=== PATIENT | male | born 1985 | race Two or more races ===

== ENCOUNTER 2018-10-21 16:40 | Emergency (ER) | payer OTHER ==
[~2018-10-21] VITALS: Ht 167.6 cm; Wt 65.8 kg
--- NOTE | 2018-10-21 16:40 | NUR ---
ED Nurse Note: pt came to ED by ambulance due to ETOH. pt vss, awaiting md orders.
[2018-10-21 17:04] VITALS: BP 114/98
--- NOTE | 2018-10-21 17:20 | NUR ---
ED Nurse Note: pt was slightly agitated around 1655. room light was turned off to allow pt to calm down. pt fell asleep. awaiting futher orders from .
[2018-10-21] MEDS ORDERED: LORazepam Inj 2mg/ml 1ml IM ONE (17:30)
--- NOTE | 2018-10-21 19:01 | NUR ---
HAND-OFF: Report given to MIKE Jo. Pt at the bedside sleeping.
[2018-10-21 19:10] VITALS: BP 126/88
--- NOTE | 2018-10-21 19:10 | NUR ---
ED Nurse Note: Received Pt and report from day shift. Pt just awaked and urine on floor when visited. Infrom EVS come and clean the floor, reposition Pt.
--- NOTE | 2018-10-21 19:20 | Emergency Room Report ---
History of Present Illness General Chief Complaint: Alcohol Intoxication Source: Patient Present Illness HPI 33-year-old male presents ED for evaluation. Reported alcohol intoxication. Picked up by EMS from street. Upon arrival patient missed alcohol use. Denies any drug use. Walking with unsteady gait. Has a knee immobilizer on. Is unable to clarify what happened to his leg. Denies any pain. Denies SI or HI. No other aggravating relieving factors. Denies any other associated symptoms Allergies: Coded Allergies: No Known Allergies (Unverified , 10/21/18) Patient History Past Medical History: none Past Surgical History: none Pertinent Family History: none Social History: Reports: alcohol use; Denies: smoking, drug use Immunizations: UTD Reviewed Nursing Documentation: PMH: Agreed; PSxH: Agreed Nursing Documentation-PMH Past Medical History: No History, Except For Review of Systems All Other Systems: negative except mentioned in HPI Physical Exam Vital Signs Date Time Temp Pulse Resp B/P (MAP) Pulse Ox O2 Delivery O2 Flow Rate FiO2 10/21/18 16:35 99.0 109 14 135/69 98 Room Air Sp02 EP Interpretation: reviewed, normal General Appearance: no apparent distress, GCS 15, non-toxic, other - intoxicated Head: normocephalic Eyes: bilateral eye normal inspection, bilateral eye PERRL ENT: normal ENT inspection Neck: normal inspection Respiratory: normal inspection Cardiovascular #1: normal inspection Gastrointestinal: normal inspection Rectal: deferred Genitourinary: no CVA tenderness Neurologic: other - intoxicated Psychiatric: other - intoxicated Skin: normal inspection Lymphatic: normal inspection Medical Decision Making Diagnostic Impression: Primary Impression: Acute alcoholic intoxication Qualified Codes: F10.929 - Alcohol use, unspecified with intoxication, unspecified ER Course Hospital Course 33-year-old male presents to ED status post EtOH intoxication. Clinical course Patient placed on stretcher. Patient initially walking with unsteady gait with risk for fall. Patient given Ativan. Allowed to sleep During ED course vital stable. Patient is now awake alert oriented 3. My assessment shows no evidence of SI/HI requiring psychiatric evaluation. Patient is asking to be discharged. Wi'll take a bus home Diagnosis - ETOH intoxication stable and discharged to home. Followup with PMD. Return to ED if symptoms recur or worsen Last Vital Signs Date Time Temp Pulse Resp B/P (MAP) Pulse Ox O2 Delivery O2 Flow Rate FiO2 10/21/18 17:04 108 21 114/98 99 Room Air 10/21/18 16:35 99.0 Status: improved Disposition: HOME, SELF-CARE Condition: Stable Referrals: [facility],REFERRING (PCP) Sawyer Wright MD Oct 21, 2018 19:20
--- NOTE | 2018-10-21 21:00 | NUR ---
ED Nurse Note: Pt awaked and provide snack food and drink. Pt answered nurse his family are away due to holiday, and they ingnore Pt because his drinking problem. Pt states he lives [place] [address] 2 blocks away. Pt is AO x 4times, VSS, on room air no distress.
[2018-10-21 21:10] VITALS: BP 130/78
--- NOTE | 2018-10-21 21:46 | NUR ---
ED Nurse Note: Pt awaked and cleared DC by HARLAN. Pt is AO x 4times, VSS, on room air no distress. Belongings given to Pt. DC instructions given to Pt, Pt understood well. ID bend removed. Assist Pt with wheel chair out of unit to bus stop, Pt will take bus to [place] to his home.
[2018-10-21 21:48] VITALS: BP 130/78
== END 2018-10-21 21:53 | disposition home or self-care (01) ==
LOC: EDBD 16:40 → EMR 16:53
DX: F10.929 Alcohol use, unspecified with intoxication, unspecified (principal)
CPT/HCPCS: 96372; 99283